=== PATIENT | female | born 1945 | race Caucasian/White ===

== ENCOUNTER → 2017-10-18 | Outpatient (CLI) | payer BC, MEDICARE ==
[~2017-10-18] MED LIST: CIPRO 500MG TA500 MG PO; FLOMAX0.4 MG PO; LEVAQUIN 5500 MG/TA1 PO; LEVOTHYROXIN0.125 MG PO; PERCOCET 325 MG1 TA2 PO; PHENERGAN 25 TA25 MG PO; PREDNISONE20 M1 PO; [UNRECOGNIZED DRUG - REMARK]
== END ==
LOC: MC.RAD 08:29
DX: Z12.31 Encounter for screening mammogram for malignant neoplasm of breast (principal)

== ENCOUNTER → 2017-10-25 | Outpatient (CLI) | payer BC | LOC: COL.VAS 08:43 | DX: E06.3 Autoimmune thyroiditis (principal); I10 Essential (primary) hypertension; R10.13 Epigastric pain ==

== ENCOUNTER 2020-08-07 19:24 | Emergency (ER) | payer MEDICARE ==
[2005-10-11 09:03] VITALS: BP 150/80
[~2020-08-07] VITALS: Ht 157.5 cm; Wt 86.4 kg
[2020-08-07 19:35] VITALS: TEMP 98.5
[2020-08-07 20:23] LABS: BASO # 0.1 (0.0-0.2); BASO % 0.5 % (0.0-2.0); EOS # 0.1 (0.0-0.7); EOS % 1.5 % (0-4.0); GRAN # 6.2 (1.4-6.5); GRAN % 67.5 % (42.2-75.2); HEMOGLOBIN 12.1 g/dl (12.5-16.0); LYMPH % 21.9 % (20.0-51.0); MEAN CELL VOLUME 93 fl (80.0-100.0); MEAN CORPUSCULAR HEMOGLOBIN 31 pg (27.0-31.0); MEAN CORPUSCULAR HGB CONC 33 g/dl (33.0-37.0); MEAN PLATELET VOLUME 9.1 fl (7.4-10.4); MONO # 0.8 (0.1-0.6); MONO % 8.3 % (1.7-9.3); PLATELET COUNT 243 K/mm3 (130-400); RED BLOOD COUNT 3.89 M/mm3 (4.10-5.30); REDCELL DISTRIBUTION WIDTH-CV 13.2 % (11.5-14.5)
[2020-08-07 20:24] LABS: HEMATOCRIT 36.2 % (37.0-47.0)
[2020-08-07 20:31] LABS: ALANINE AMINOTRANSFERASE 26 U/L (4-34); ALBUMIN 4.4 gm/dL (3.5-5.0); ALKALINE PHOSPHATASE 66 U/L (50-136); ANION GAP 10 mmol/L (7-16); AST,SGOT 34 U/L (15-37); BILIRUBIN,TOTAL 0.6 mg/dL (0.0-1.0); BLOOD UREA NITROGEN 36 mg/dL (7-17); CALCIUM 9.3 mg/dL (8.4-10.2); CARBON DIOXIDE 24 mmol/L (22-30); CHLORIDE 99 mmol/L (98-107); CREATINE KINASE 335 U/L (30-135); CREATININE, serum 1.34 (0.52-1.25); GLUCOSE 99 mg/dL (74-106); LIPASE 170 U/L (23-300); POTASSIUM 3.5 mmol/L (3.4-5.0); SODIUM 133 mmol/L (137-145); TOTAL PROTEIN 7.8 gm/dL (6.4-8.2)
[2020-08-07 20:43] LABS: TROPONIN-I < 0.012 ng/mL (0.000-0.035)
[2020-08-07 20:48] LABS: INR 1.1 (0.8-3.0); PROTHROMBIN TIME 11.9 SECONDS (9.7-12.8)
[2020-08-07 23:08] VITALS: BP 149/74; PULSE 82
== END 2020-08-07 23:08 | disposition home or self-care (01) ==
LOC: COL.ER 19:24
PROVIDERS: Emergency Medicine
DX: F41.9 Anxiety disorder, unspecified (principal); R06.02 Shortness of breath; I10 Essential (primary) hypertension; Z88.8 Allergy status to other drugs, medicaments and biological substances
CPT/HCPCS: J2060; J7030; Q9967

== ENCOUNTER 2020-10-14 07:23 | Day surgery (SDC) | payer MEDICARE ==
[2005-10-11 09:03] VITALS: BP 150/80
[~2020-10-14] VITALS: Ht 157.5 cm; Wt 81.7 kg
[2020-10-14] VITALS (11 sets, daily range): BP systolic 95–113; BP diastolic 42–78; PULSE 58–70; TEMP 98.4
[2020-10-14 07:51] LABS: HEMATOCRIT 37.8 % (37.0-47.0); HEMOGLOBIN 12.9 g/dl (12.5-16.0); MEAN CELL VOLUME 92 fl (80.0-100.0); MEAN CORPUSCULAR HEMOGLOBIN 31 pg (27.0-31.0); MEAN CORPUSCULAR HGB CONC 34 g/dl (33.0-37.0); MEAN PLATELET VOLUME 9.7 fl (7.4-10.4); PLATELET COUNT 200 K/mm3 (130-400); RED BLOOD COUNT 4.11 M/mm3 (4.10-5.30); REDCELL DISTRIBUTION WIDTH-CV 13.1 % (11.5-14.5)
[2020-10-14] MEDS ORDERED: LEXAPRO 5MG5 MG PO (07:56)
[2020-10-14] MEDS ORDERED: HCTZ12.5TAB PO (07:56)
[2020-10-14] MEDS ORDERED: TOPROL XL 25MG25 MG PO (07:57)
[2020-10-14] MEDS ORDERED: ASPIRIN E.C. 8181 MG PO (07:58)
[2020-10-14] MEDS ORDERED: HCTZ 25MG TAB25 MG PO (07:58)
[2020-10-14] MEDS ORDERED: SYNTHROID0.137 MG PO (07:59)
[2020-10-14 08:04] LABS: CALCIUM 9.1 mg/dL (8.4-10.2); CREATININE, serum 1.25 (0.52-1.25); POTASSIUM 3.8 mmol/L (3.4-5.0); PROTHROMBIN TIME 11.5 SECONDS (9.7-12.8)
[2020-10-14 08:06] LABS: PARTIAL THROMBOPLASTIN TIME 28.3 SECONDS (26.0-37.0)
--- NOTE | 2020-10-14 09:53 | NUR ---
SEE MERGE DOCUMENTATION FOR MEDICATION ADMINISTRATION TIMES AND INTRA/POST PROCEDURE SEDATION ASSESSMENTS. PT VERY ANXIOUS; VORB FROM MD FOR ONE TIME DOSE VERSED 1MG IV ON ARRIVAL TO DELIVER DRIVER.
--- NOTE | 2020-10-14 10:30 | NUR ---
Report from Jonathan MCCLENDON. Transferred from cardiac cath tech by bed. Right Tband with 16 cc air, CD&I, good pulses and cap refill < 3 secs noted. VSS. Denies pain and needs at this time.
--- NOTE | 2020-10-14 13:35 | NUR ---
Right Tband released of 16 cc air and dressing applied. INT discontinued intact. Discharge instructions given.
--- NOTE | 2020-10-14 13:57 | NUR ---
Transferred to [facility] by [facility]
== END 2020-10-14 13:57 | disposition home or self-care (01) ==
LOC: COL.CAR 07:23
PROVIDERS: Internal Medicine Cardiovascular Disease
DX: I25.10 Atherosclerotic heart disease of native coronary artery without angina pectoris (principal); F32.9 Major depressive disorder, single episode, unspecified; E66.01 Morbid (severe) obesity due to excess calories; J45.909 Unspecified asthma, uncomplicated; I10 Essential (primary) hypertension; E78.5 Hyperlipidemia, unspecified; F41.9 Anxiety disorder, unspecified; E03.9 Hypothyroidism, unspecified; M19.90 Unspecified osteoarthritis, unspecified site; G25.0 Essential tremor; K11.23 Chronic sialoadenitis; Z79.82 Long term (current) use of aspirin; Z79.899 Other long term (current) drug therapy
CPT/HCPCS: C1769; J1644; J2250; J3010; Q9967